=== PATIENT | female | born 1970 | race Caucasian/White ===

== ENCOUNTER 2018-11-12 19:17 | Emergency (ER) | payer BC ==
[~2018-11-12] VITALS: Ht 172.7 cm; Wt 59.0 kg
[2018-11-12 19:30] VITALS: BP 129/66
[2018-11-12] MEDS ORDERED: TDAP [DIPH/PERTUSSIS/TET] 0.5 ML VIAL IM ONE ×2 (20:54→21:30)
[2018-11-12] MEDS ORDERED: ACETAMINOPHEN ES 500 MG TABLET PO ONE (21:30)
== END 2018-11-12 20:58 | disposition home or self-care (01) ==
LOC: ER 19:19
DX: S06.0X0A Concussion without loss of consciousness, initial encounter (principal); S01.81XA Laceration without foreign body of other part of head, initial encounter; S01.111A Laceration without foreign body of right eyelid and periocular area, initial encounter; R51 Headache; W18.09XA Striking against other object with subsequent fall, initial encounter; Y93.89 Activity, other specified; Y92.89 Other specified places as the place of occurrence of the external cause; Y99.8 Other external cause status
CPT/HCPCS: 70450-TC; 90715